=== PATIENT | male | born 1960 | race Caucasian/White ===

== ENCOUNTER 2017-10-20 05:36 | Emergency (ER) | payer OTHER ==
[~2017-10-20] VITALS: Ht 188 cm; Wt 144.2 kg
[2017-10-20] MEDS ORDERED: LOSARTAN POTAS100 MG PO (06:18)
[2017-10-20] MEDS ORDERED: NAPROSYN250 MG PO (06:19)
[2017-10-20] MEDS ORDERED: FISH OIL 1,0001 EAC7 PO (06:20)
[2017-10-20] MEDS ORDERED: GLUCOSAMINE &1 EAC1 PO (06:20)
[2017-10-20] MEDS ORDERED: LAMISIL250 MG PO (06:21)
[2017-10-20] MEDS ORDERED: ADULTS 50+ MUL1 EACH PO (06:22)
[2017-10-20 06:23] LABS: HEMOGLOBIN 13.5 G/DL (12.5-16.6); MCH 28.4 PG (29.0-34.0); MCHC 33.8 G/DL (30.0-36.0); PLATELET COUNT 190 K/uL (156-360); RBC DIS.WIDTH-CV 13.7 % (11.8-14.6); RBC DIS.WIDTH-SD 42.3 % (39-53); RED BLOOD COUNT 4.76 M/uL (4.00-5.50); WHITE BLOOD COUNT 5.9 K/uL (4.1-10.2)
[2017-10-20 06:34] LABS: CHLORIDE 108 mEq/L (99-109); POTASSIUM 4.2 mEq/L (3.7-5.4); SODIUM 143 mEq/L (136-147)
[2017-10-20 06:36] LABS: GLUCOSE 117 mg/dL (70-99)
[2017-10-20 06:40] LABS: CREATININE 0.9 mg/dL (0.6-1.3); GFR ESTIMATE (CALCULATED) > 59 mL/min/ (58.99-99999)
[2017-10-20 06:41] LABS: UREA NITROGEN (BUN) 27 mg/dL (9-23)
[2017-10-20 06:45] LABS: TROP-I INTERPRETATION NEGATIVE; TROPONIN-I < 0.01 ng/mL (0.0-0.30)
[2017-10-20 07:42] VITALS: BP 128/80
== END 2017-10-20 07:49 | disposition home or self-care (01) ==
LOC: EME 05:36
PROVIDERS: Emergency Medicine Emergency Medical Services
DX: R07.9 Chest pain, unspecified (principal); R06.02 Shortness of breath; R05 Cough; I10 Essential (primary) hypertension; Z88.0 Allergy status to penicillin; Z88.8 Allergy status to other drugs, medicaments and biological substances
CPT/HCPCS: 71045; 80048; 84484; 85027; 93005; 99281; 99285